=== PATIENT | female | born 1995 | race Caucasian/White ===

== ENCOUNTER 2020-01-24 21:30 | Emergency (ER) | payer OTHER ==
[~2020-01-24] VITALS: Ht 172.7 cm; Wt 65.9 kg
[2020-01-24 21:45] VITALS: BP 144/100
[2020-01-24] MEDS ORDERED: HYDROcodone/APAP 7.5/325MG 1 TAB TABLET PO ONE (22:30)
[2020-01-24] MEDS ORDERED: HYDR-3166 PO (22:57)
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
[2020-01-24] MEDS ORDERED: HYDROmorphone PF 1 MG/ML DISP.SYRIN IM ONE (23:00)
[2020-01-24] MEDS ORDERED: ONDANSETRON ODT 4 MG TAB.RAPDIS PO ONE (23:00)
== END 2020-01-24 23:30 | disposition home or self-care (01) ==
LOC: ER 21:30
DX: T22.211A Burn of second degree of right forearm, initial encounter (principal); T23.201A Burn of second degree of right hand, unspecified site, initial encounter; T23.231A Burn of second degree of multiple right fingers (nail), not including thumb, initial encounter; Z88.1 Allergy status to other antibiotic agents; X08.8XXA Exposure to other specified smoke, fire and flames, initial encounter; Y93.89 Activity, other specified; Y92.89 Other specified places as the place of occurrence of the external cause; Y99.8 Other external cause status
CPT/HCPCS: 16020; 96372; 99283; J1170; Q0162

== ENCOUNTER 2020-10-15 23:26 | Emergency (ER) | payer OTHER ==
[~2020-10-15] VITALS: Ht 172.7 cm; Wt 65.9 kg
[~2020-10-15 23:26] MED LIST: HYDR-3166 PO
--- NOTE | 2020-10-16 00:02 | EKG ---
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
[2020-10-16 00:34] LABS: BASO # 0.1 x10^3/uL (0.0-0.2); BASO % 1 % (0-3); EOS # 0.1 x10^3/uL (0.0-0.7); EOS % 1 % (0-3); HEMATOCRIT 42.7 % (36.0-47.0); HEMOGLOBIN 14.2 g/dL (12.0-15.5); LYMPH # 2.4 x10^3/uL (1.0-4.8); LYMPH % 31 % (24-48); MEAN CORPUSCULAR HEMOGLOBIN 30 pg (25-35); MEAN CORPUSCULAR HGB CONC 33 g/dL (31-37); MEAN CORPUSCULAR VOLUME 90 fL (79-100); MONO # 0.5 x10^3/uL (0.0-1.1); MONO % 6 % (0-9); NEUT # 4.8 x10^3uL (1.8-7.7); NEUT % 61 % (31-73); PLATELET COUNT 373 x10^3/uL (140-400); RED BLOOD COUNT 4.75 x10^6/uL (3.50-5.40); RED CELL DISTRIBUTION WIDTH 13.1 % (11.5-14.5); WHITE BLOOD COUNT 7.8 x10^3/uL (4.0-11.0)
--- NOTE | 2020-10-16 00:39 | PHYS DOC ---
Past History Past Medical History: No Pertinent History Past Surgical History: Tonsillectomy Alcohol Use: Occasionally Adult General Chief Complaint Chief Complaint: OVERDOSE HPI HPI Patient is a 25-year-old female who presents to the emergency department with suicidal ideations and attempted overdose of 10-50 mg sertraline tablets between 10 and 10:30 PM this evening. States that she got into a little bit of an argument with her fianc and did it impulsively. States that right after she did that she regretted it. States that she has not had any thoughts of suicide, homicide or hallucinations. States this was completely impulsive and she wishes that she had never done it. States she has had some stress at home. Denies any recent travels, traumas, fevers, illnesses, chest pain, shortness of breath, abdominal pain, nausea, vomiting, diarrhea, dysuria, hematuria or blood in the stool. Denies any alcohol or drug use. Review of Systems Review of Systems Review of systems otherwise unremarkable except noted in HPI Allergies Allergies Allergies Coded Allergies Type Severity Reaction Last Updated Verified doxycycline Allergy Mild NAUSEA 01/24/20 Yes Physical Exam Physical Exam Constitutional: Well developed, well nourished, no acute distress, non-toxic appearance. [] HENT: Normocephalic, atraumatic, bilateral external ears normal, oropharynx moist, no oral exudates, nose normal. [] Eyes: PERRLA, EOMI, conjunctiva normal, no discharge. [] Neck: Normal range of motion, no tenderness, supple, no stridor. [] Cardiovascular:Heart rate regular rhythm, no murmur [] Lungs & Thorax: Bilateral breath sounds clear to auscultation [] Abdomen: Bowel sounds normal, soft, no tenderness, no masses, no pulsatile masses. [] Skin: Warm, dry, no erythema, no rash. [] Back: No tenderness, no CVA tenderness. [] Extremities: No tenderness, no cyanosis, no clubbing, ROM intact, no edema. [] Neurologic: Alert and oriented X 3, normal motor function, normal sensory function, no focal deficits noted. [] Psychologic: Affect normal, judgement abnormal, mood regretful. No suicidal ideation, no homicidal ideation, no hallucinations. Patient states that she is not sure why she did that, because she does not want to hurt herself and does not want to commit suicide but did it impulsively. States she regretted it right after she did it. [] Current Patient Data Vital Signs Vital Signs Date Time Temp Pulse Resp B/P (MAP) Pulse Ox O2 Delivery O2 Flow Rate FiO2 10/15/20 23:47 98.2 108 18 128/75 98 Room Air Lab Results Laboratory Tests Test 10/16/20 00:20 White Blood Count 7.8 x10^3/uL (4.0-11.0) Red Blood Count 4.75 x10^6/uL (3.50-5.40) Hemoglobin 14.2 g/dL (12.0-15.5) Hematocrit 42.7 % (36.0-47.0) Mean Corpuscular Volume 90 fL (79-100) Mean Corpuscular Hemoglobin 30 pg (25-35) Mean Corpuscular Hemoglobin Concent 33 g/dL (31-37) Red Cell Distribution Width 13.1 % (11.5-14.5) Platelet Count 373 x10^3/uL (140-400) Neutrophils (%) (Auto) 61 % (31-73) Lymphocytes (%) (Auto) 31 % (24-48) Monocytes (%) (Auto) 6 % (0-9) Eosinophils (%) (Auto) 1 % (0-3) Basophils (%) (Auto) 1 % (0-3) Neutrophils # (Auto) 4.8 x10^3uL (1.8-7.7) Lymphocytes # (Auto) 2.4 x10^3/uL (1.0-4.8) Monocytes # (Auto) 0.5 x10^3/uL (0.0-1.1) Eosinophils # (Auto) 0.1 x10^3/uL (0.0-0.7) Basophils # (Auto) 0.1 x10^3/uL (0.0-0.2) EKG EKG [] Radiology/Procedures Radiology/Procedures [] Heart Score C/O Chest Pain: No Risk Factors: Risk Factors: DM, Current or recent (<one month) smoker, HTN, HLP, family history of CAD, obesity. Risk Scores: Risk Factors: DM, Current or recent (<one month) smoker, HTN, HLP, family history of CAD, obesity. Course & Med Decision Making Course & Med Decision Making Patient is a 25-year-old female who presents after ingesting 500 mg of sertraline impulsively during a moment of heightened emotions Vital signs not concerning. Physical exam noted above. Laboratory analysis notable for elevated ethanol. Discussed patient with poison control who felt at the 6-hour cm as long as she was awake, alert and oriented with normal EKGs and normal labs she would be clear from a toxicological standpoint. EKG noted above. Psychiatric assessment team evaluated and felt patient was not suicidal, homicidal or hallucinating and did this impulsively in a moment of stress/anger/emotional heightened situation. Created a safety plan for patient and a plan to follow-up at the [facility] for continued evaluation and treatment as well as discussions about alcohol use. Also given resources for local primary care physicians, free clinics and guidance Center information. Gave strict return precautions to the ED. Patient grateful, verbalized understanding and agreed with plan of discharge. Dragon Disclaimer Dragon Disclaimer This electronic medical record was generated, in whole or in part, using a voice recognition dictation system. Departure Departure: Impression: Primary Impression: Suicidal ideation Additional Impression: Antidepressant overdose Disposition: 01 HOME / SELF CARE / HOMELESS Condition: STABLE Referrals: PCP,JACLYN (PCP) BRITANY GUPTA Patient Instructions: Anger Management, Suicidal Feelings, How to Help Yourself Additional Instructions: Thank you for coming into the emergency department tonight and allowing us to take care of you. Please read all of the attached information very carefully to go back over what we discussed as well as go back over the safety plan given to you by the psychiatric assessment team and the packet of resources given to you with local resources. Please call your primary care physician or the physician noted in your discharge first thing Sunday to set up follow-up appointments. Please call the guidance Center first thing in the morning to discuss your ED visit and set up a follow-up appointment as soon as you can. Please use the hotline as discussed. Please come back to the ED with new or concerning symptoms as discussed. Problem Qualifiers NIXON SCHMITZ MD Oct 16, 2020 00:39
[2020-10-16 00:40] LABS: CALCIUM 9.4 mg/dL (8.5-10.1); CREATININE 0.7 mg/dL (0.6-1.0); GFR 102.8; POTASSIUM 3.6 mmol/L (3.5-5.1)
[2020-10-16 00:44] LABS: ETHANOL 180 mg/dL (0-10); SALIC < 2.8 mg/dL (2.8-20.0)
[2020-10-16 00:45] LABS: ACETAMIN < 2.0 mcg/mL (10-30)
--- NOTE | 2020-10-16 02:12 | EKG ---
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
[2020-10-16 04:10] VITALS: BP 106/70
== END 2020-10-16 04:15 | disposition home or self-care (01) ==
LOC: ER 23:26
DX: T43.222A Poisoning by selective serotonin reuptake inhibitors, intentional self-harm, initial encounter (principal); R45.851 Suicidal ideations; Z88.1 Allergy status to other antibiotic agents; Y92.89 Other specified places as the place of occurrence of the external cause
CPT/HCPCS: 36415; 80048; 80329; 85025; 93005; 99285; G0480